=== PATIENT | male | born 1995 | race Caucasian/White ===

== ENCOUNTER 2019-04-07 02:02 | Emergency (ER) | payer OTHER | END 2019-04-07 03:45 | disposition home or self-care (01) | LOC: E/R 02:02 | DX: F11.23 Opioid dependence with withdrawal (principal); R40.2142 Coma scale, eyes open, spontaneous, at arrival to emergency department; R40.2362 Coma scale, best motor response, obeys commands, at arrival to emergency department; R40.2252 Coma scale, best verbal response, oriented, at arrival to emergency department | CPT/HCPCS: 99283; Z7502 ==